=== PATIENT | male | born 1995 | race Caucasian/White ===

== ENCOUNTER 2023-05-30 11:12 | Emergency (ER) | payer OTHER ==
[2023-05-30 11:41] VITALS: RESP 18; TEMP 98.7; BMI 29.6
[2023-05-30] MEDS ORDERED: KETOROLAC TROMETHAMINE 30 MG/1 ML VIAL IVPUSH ONE (12:43)
[2023-05-30] MEDS ORDERED: KETOROLAC TROMETHAMINE 15 MG/ML VIAL ONE (13:03)
[2023-05-30 13:47] LABS: BASO % 2.2 % (0-2.0); EOS % 7.7 % (0-4.5); HEMATOCRIT 43.6 % (35.4-49); HEMOGLOBIN 14.4 GM/dL (11.7-16.9); LYMPH % 36.7 % (8-40); MCH 30.8 pg (25.7-33.7); MCHC 33.1 g/dl (32.0-35.9); MEAN PLT VOLUME 10.1 fl (7.5-11.1); MONO % 7.1 % (3.8-10.2); NEUT % 46.3 % (42.8-82.8); PLATELET COUNT 212 10^3/uL (134-434); RBC 4.69 M/mm3 (4.00-5.60); RDW 13.2 % (11.9-15.9); WHITE BLOOD COUNT 8.4 K/mm3 (4.0-10.0)
[2023-05-30 14:17] LABS: BLOOD UREA NITROGEN 21.5 mg/dL (7-18)
[2023-05-30] MEDS ORDERED: SODIUM CHLORIDE 0.9% 500 ML INFUS.BAG IV ONE (14:24)
[2023-05-30 15:27] VITALS: BP 127/84; PULSE 63
== END 2023-05-30 15:49 | disposition home or self-care (01) ==
LOC: JER 11:12
PROC: 3E0333Z Introduction of Anti-inflammatory into Peripheral Vein, Percutaneous Approach (ICD-10-PCS; principal; 2023-05-30)
DX: R51.9 Headache, unspecified (principal); R22.0 Localized swelling, mass and lump, head; R11.0 Nausea; R09.81 Nasal congestion; J32.9 Chronic sinusitis, unspecified
CPT/HCPCS: 36415; 70450-TC; 70487-TC; 80048; 85025; 99285-25; Q9967